=== PATIENT | male | born 1980 | race Caucasian/White ===

== ENCOUNTER 2018-10-22 07:13 | Emergency (ER) | payer SELFPAY ==
[2018-10-22 07:26] VITALS: BP 151/91; PULSE 70; RESP 16; TEMP 37; O2SAT 98
[2018-10-22 07:33] VITALS: RESP 16
--- NOTE | 2018-10-22 08:04 | ED.GENADUL_ITS ---
Discharge Plan Disposition Patient Disposition: HOME Condition: Stable Discharge Details Chief Complaint: GenMedical Clinical Impression: Pain in throat Primary Care Provider: Reid Sánchez ED Provider: Vin Richetr Home Meds and New Rx's Prescriptions: Continued Prilosec OTC 20 mg Tablet,Delayed Release (Dr/Ec) 20 mg PO DAILY RF: 0 Cayenne Pepper 1 tab PO DAILY RF: 0 Discharge Instructions Instructions: Neck Pain (ED) Additional Instructions: follow up with your primary care provider within 1-2 weeks if symptoms continue if you have difficulty swallowing liquids, difficulty breathing, vision changes, chest pain or if you feel more ill return to the emergency department Medical Decision Making 38 yo male who denies chronic medical problems comes in with pain in mid throat pain since . Denies fevers, chills, chest pain, sob. Denies pain with exertion, no radiation of pain and ecg unremarkable and no indications that this is acs, do not feel further workup indicated. Has no bruits and CN II-XII are intact and so doubt dissection. he does have some erythema of psoterior pharynx so will check for strep. 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 strep test negative, remains stable. Discussed that if not better in 1-2 weeks to see pcp and return precatuions given Differential Diagnosis pharyngitis, esophagitis ECG Data Attestation: I personally reviewed and interpreted this ECG (s) as follows: Prior ECG tracings: not available for review Interpretation: sinus rhythm, rate of 70, pr 164 HPI General Mode of arrival: ambulatory . Date/Time Provider Initiated Documentation: 10/22/18 07:23 . Limitations to Documentation: no limitations . Information obtained by: patient . History of Present Illness 38 year old M presents to the emergency department with the chief complaint of sore throat, described as moderate, and it has been constant. No relieving factors improve symptom(s), No exacerbating factors reported . Patient did receive the following treatments prior to arrival, none Related Data Home Medications Medication Instructions Recorded Confirmed Cay[place] Pepper 1 tab PO DAILY 10/22/18 Prilosec OTC 20 mg PO DAILY 10/22/18 10/22/18 Allergies Allergy/AdvReac Type Severity Reaction Status Date / Time bee venom protein (honey bee) Allergy Anaphylaxsi Unverified 10/22/18 07:30 s General Stated Complaint: GenMedical LILA: 3 Review of Systems Review of Systems All systems reviewed & are unremarkable except as noted in HPI and below Constitutional Denies chills, Denies fever(s) and Denies weakness Cardiovascular Denies chest pain and Denies dyspnea Respiratory Denies cough and Denies dyspnea Gastrointestinal Denies abdominal pain, Denies nausea and Denies vomiting Musculoskeletal Denies joint swelling Neurologic Denies weakness PFSH Social History Smoking/Tobacco Use Status: Current every day Tobacco Type: cigarettes Alcohol Intake: current Alcohol Intake frequency: a few times a month Alcohol type: beer Drug use: Occasionally Substance use type: marijuana Do you feel safe at home: Yes Do you feel safe in your relationship?: Yes Exam Const General: no acute distress Orientation: alert HENMT Head: normal to inspection Ears: external ears normal General nose exam: external nose normal Mouth: moist mucous membranes Eyes General: appearance normal, both eyes and all related structures Neck Neck: normal visual inspection Resp Effort & Inspection: normal respiratory effort and able to speak in complete sentences Cardio Rate: regular rate Skin General skin exam: no rashes or lesions noted Neuro General: alert and oriented x3 Extrem General: normal to inspection Psych Mental Status: mental status grossly normal Course Vital Signs Temperature 37 C 10/22/18 07:26 Pulse 70 10/22/18 07:26 Respiratory Rate 16 10/22/18 07:26 Blood Pressure 151/91 H 10/22/18 07:26 Pulse Oximetry 98 10/22/18 07:26 Temperature 37 C 10/22/18 07:26 Temperature Source Temporal Artery Scan 10/22/18 07:26 Pulse 70 10/22/18 07:26 Respiratory Rate 16 10/22/18 07:33 Respiratory Effort Non-Labored 10/22/18 07:33 Respiratory Depth Normal 10/22/18 07:33 Respiratory Pattern Normal 10/22/18 07:33 Blood Pressure 151/91 H 10/22/18 07:26 Blood Pressure Position Supine 10/22/18 07:26 Pulse Oximetry 98 10/22/18 07:26 Oxygen Delivery Method Room Air 10/22/18 07:26 Oxygen Flow Rate 0 10/22/18 07:26 Pain Level 4 10/22/18 07:26
[2018-10-22 08:41] VITALS: BP 130/74; PULSE 72; RESP 16; O2SAT 98
[2018-10-22 08:42] VITALS: BP 130/74; PULSE 72; RESP 16; O2SAT 98
--- NOTE | 2018-10-22 09:51 | NUR.NOTE ---
Nursing Note: Faxed referral to [facility] to re-establish care at their facility. Sarah Carter.
== END 2018-10-22 08:45 | disposition home or self-care (01) ==
LOC: ER 08:14
PROVIDERS: Emergency Provider Emergency Medicine; PCP Internal Medicine
DX: J02.9 Acute pharyngitis, unspecified (principal); F17.210 Nicotine dependence, cigarettes, uncomplicated
CPT/HCPCS: 87880; 93005; 99283; 87081; 93010

== ENCOUNTER 2020-11-09 13:39 | Outpatient (CLI) | payer OTHER, SELFPAY ==
--- NOTE | 2020-11-09 13:30 | DI.RAD_ITS ---
Exam(s) XR THUMB RT EXAM: XR THUMB RT CLINICAL HISTORY: R thumb injury. TECHNIQUE: 2D digital imaging was performed of the right finger. Three views were obtained. PA/AP, oblique, and lateral views were obtained. COMPARISON: No exams were available for comparison FINDINGS: BONES: No acute fracture is present. No bony destructive lesion is seen. JOINTS: No dislocation present. SOFT TISSUE: Normal. IMPRESSION: No evidence of acute fracture, dislocation, or subluxation. DATA REPOSITORY: RADIATION DOSE DELIVERED:
== END 2020-11-09 13:40 | disposition home or self-care (01) ==
LOC: DIORS 13:40
PROVIDERS: PCP Internal Medicine; Referring Provider Internal Medicine; Visit Provider Physician Assistant
DX: S69.81XA Other specified injuries of right wrist, hand and finger(s), initial encounter (principal); S63.641A Sprain of metacarpophalangeal joint of right thumb, initial encounter
CPT/HCPCS: 73140

== ENCOUNTER 2023-04-24 18:51 | Outpatient (REF) | payer SELFPAY | END 2023-04-24 18:52 | disposition home or self-care (01) | LOC: LBN 18:51 | PROVIDERS: PCP Internal Medicine; Visit Provider Nurse Practitioner Family | DX: J02.9 Acute pharyngitis, unspecified (principal) | CPT/HCPCS: 87070 ==

== ENCOUNTER 2023-09-26 18:59 | Emergency (ER) | payer OTHER, SELFPAY ==
[2023-09-26 19:06] VITALS: BP 177/117; PULSE 71; RESP 14; TEMP 36.8; O2SAT 99
--- NOTE | 2023-09-26 19:25 | ED.GENADUL_ITS ---
Discharge Plan Disposition Patient Disposition: Home Condition: Stable Discharge Details Clinical Impression: Laceration of left lower leg Primary Care Provider: Reid Sánchez ED Provider: Manny Hwang Home Meds and New Rx's Prescriptions: New cephalexin 500 mg capsule 500 mg PO QID 4 Days Qty: 16 0RF No Action esomeprazole magnesium [Nexium] 20 mg capsule,delayed release(DR/EC) 20 mg PO DAILY Discharge Instructions Instructions: Taking care of cuts, scrapes, and puncture wounds, Cephalexin, Laceration Repair With Stitches ED Additional Instructions: You were seen in the emergency department for your utility knife laceration to your left jha. Your tendons appear intact in all ranges of motion distal to the injury and there is no gross contamination, I thoroughly irrigated the wound, you are updated tetanus at the walk-in clinic prior to her arrival here, I performed a loose approximation as there is an element of puncture to this wound, please monitor this carefully, your stitches will need to be removed by returning to the ER in 7 to 10 days. Please monitor for signs of infection like redness, purulent drainage, red streaking up the leg, fever, severe increase in pain and return to the ER for any of the symptoms. Keep the wound clean and dry, apply bacitracin or Neosporin to the wound and keep covered with a bandage for the first 36 to 72 hours, after that keep the wound clean and dry. Please use therapeutic dosing of Tylenol (acetamenophen) & Advil (ibuprofen) in an alternating fashion as follows: Take 1000mg of Tylenol every 6 hours without missing doses- that is 4 times per day. [place]son in between the Tylenol dosings, take 400-600mg of Advil also on a 6 hour schedule, that is also 4 times per day. The daily maximum dosing of Tylenol is 4000mg, and the daily maximum dosing of Advil is 2400mg. This is safe to do for weeks. Please note that some common cold medications & prescription pain medications may contain acetamenophen and you need to read OTC drug labels and factor that in to maximum daily dosings. Do not submerge the wound or go swimming. Showering is fine. Take the prescribed prophylactic antibiotics as directed. Referrals: Reid Sánchez [Primary Care Provider] - Discharge Data Discharge Date/Time-TO BE ENTERED AT DEPARTURE: 09/26/23 20:42 HPI General Date/Time Provider Initiated Documentation: 09/26/23 19:05 . HPI Narrative: 43 year-old male presents to ED today by POV/ambulating with a chief complaint of laceration with a sheetrock knife to anterior L jha with onset at work this afternoon- he presented to Urgent Care in [facility], they updated his Tdap- irrigated the wound, and he was reporting some referred pain to the L foot- they refused simple closure and sent to ED for evaluation due to his referred foot pain. Quality described as stinging, no radiation to active bleeding, numbness, inability to move his L leg and foot. Severity is described as mild. Palliating factors include nothing specific. Provoking factors include nothing specific. Patient not anticoagulated. Related Data Home Medications ?Medication ?Instructions ?Recorded ?Confirmed esomeprazole magnesium 20 mg 20 mg PO DAILY 07/23/23 09/26/23 capsule,delayed release (Nexium) cephalexin 500 mg capsule 500 mg PO QID 4 days #16 caps 09/26/23 Previous Rx's ?Medication ?Instructions ?Recorded cephalexin 500 mg capsule 500 mg PO QID 4 days #16 caps 09/26/23 Allergies Allergy/AdvReac Type Severity Reaction Status Date / Time bee venom protein (honey bee) Allergy Anaphylaxsi Verified 09/26/23 19:05 s General Stated Complaint: Laceration LILA: 4 Review of Systems All systems reviewed & are unremarkable except as noted in HPI and below Exam Narrative Exam Narrative: GENERAL APPEARANCE: Well-nourished, non-toxic, awake and alert, atraumatic, no acute distress. SKIN: Warm, pink, dry, 1.75cm anterior L-shaped L LE jha laceration, no active bleeding, no tendons visualized, not grossly contaminated, full ROM distally, plantar/dorsiflexion 5/5, L dorsalis pedis pulse 2+, sensation intact distally HEAD: Normocephalic, atraumatic, normal hair distribution for gender/age. EYES: Normal conjunctiva, no exudates on lids/lashes. ENT: Nares patent, no circumoral cyanosis, no facial swelling NECK: Supple, trachea midline, painless cervical ROM. LUNGS/CHEST: Non-labored respirations, normal A/P diameter, symmetrical expansion, no chest wall deformity HEART (CV/PV): Regular rate, no peripheral edema, no JVD. ABDOMEN: Soft, non-distended, no guarding. MSK: Normal ROM, no swelling/deformity to bilateral UEs or LEs, moving all extremities without weakness, no cyanosis, spine midline without tenderness, normal curvature. NEURO: Mental Status AAOx4 - alert to person, place, time, events No facial droop, no forehead involvement. Motor: No focal weakness - strength 5/5 in bilateral UEs and LEs, proximal and distal, symmetric. Sensory: sensation intact to light touch globally. Gait normal: patient ambulated without ataxia into ED room. PSYCH: euthymic, cooperative, pleasant, appropriate speech Course Vital Signs Vital signs: Vital Signs Temperature 36.8 C 09/26/23 19:06 Pulse 71 09/26/23 19:06 Respiratory Rate 14 09/26/23 19:06 Blood Pressure 177/117 H 09/26/23 19:06 Pulse Oximetry 99 09/26/23 19:06 Temperature 36.8 C 09/26/23 19:06 Temperature Source Temporal Artery Scan 09/26/23 19:06 Pulse 71 09/26/23 19:06 Respiratory Rate 14 09/26/23 19:06 Respiratory Effort Normal 09/26/23 19:10 Blood Pressure 177/117 H 09/26/23 19:06 Blood Pressure Position Sitting 09/26/23 19:06 Pulse Oximetry 99 09/26/23 19:06 Oxygen Delivery Method Room Air 09/26/23 19:06 Oxygen Flow Rate 0 09/26/23 19:06 Pain Level 1 09/26/23 19:10 Procedures Laceration Laceration 1: Site: lower extremity Side (If applicable): left Size (cm): 1.75 Description: stellate Depth: simple, single layer Local anesthetic: Lidocaine 2% Amount of anesthesia used (mL): 3 Pre-repair: wound explored, irrigated extensively and deep structures intact Skin layer closed with: nylon Size (cm): 4-0 Number of sutures: 3 Medical Decision Making This dictation utilizes [id number] dictation software and may contain unedited grammatical errors. 43 year-old male presents to ED today by POV/ambulating with a chief complaint of laceration with a sheetrock knife to anterior L jha with onset at work this afternoon- he presented to Urgent Care in town, they updated his Tdap- irrigated the wound, and he was reporting some referred pain to the L foot- they refused simple closure and sent to ED for evaluation due to his referred foot pain. Quality described as stinging, no radiation to active bleeding, numbness, inability to move his L leg and foot. Severity is described as mild. Palliating factors include nothing specific. Provoking factors include nothing specific. Patients' medical history: noncontributory. Family and social history: works as a [employer]. Pertinent exam findings / vital signs include 1.75cm anterior L-shaped L LE jha laceration, no active bleeding, no tendons visualized, not grossly contaminated, full ROM distally, plantar/dorsiflexion 5/5, L dorsalis pedis pulse 2+, sensat ion intact distally. Differential / pathologies of concern include laceration, not tendon rupture. Diagnostic studies of: -none. Interventions of: -laceration repair w/ #3 sutures of 4-0 prolene ED Course/Assessment/Plan: 43-year-old male presents with a left anterior jha laceration that is 1.5 cm L- shaped, he was seen at urgent care they did Tdap him as well as start laceration repair but wanted him evaluated due to possibility of tendon rupture despite full range of motion and sensation distally, I did repair the wound after anesthetizing it with 3 mL of 2% lidocaine without epinephrine with 3 sutures of 4-0 Prolene, I stressed return criteria for suture removal in 7 to 10 days, earlier return for signs of infection like redness, purulent drainage, red streaking, increasing swelling, fever. Counseled on Tylenol and ibuprofen for pain as needed and daily dressing changes and avoiding swimming with this. Findings not consistent with gross contamination, tendon rupture. Disposition of Laceration of Left Lower Leg. Patient verbalized understanding of the plan and return to ED criteria and engaged in shared decision making. Medical Records Medical records reviewed: Yes I reviewed the patient's medical records. Quality:SDOH Health Related Social Needs: No Data to Display PFSH All Active Problems (Updated 09/26/23 @ 20:30 by FRENCH Prado) Laceration of left lower leg (Acute) Sprain of ulnar collateral ligament of metacarpophalangeal (MCP) joint of right thumb (Acute) Social History Smoking/Tobacco Use Status: Current every day Tobacco Type: cigarettes Smoking risk assessment performed?: Yes Alcohol Intake: current Alcohol Intake frequency: a few times a month Alcohol type: beer Drug use: Occasionally Substance use type: marijuana Current gender identity: male Do you feel safe at home: Yes Do you feel safe in your relationship?: Yes
[2023-09-26] MEDS: Cephalexin 500 MG CAP, 2 CAPS/BTL PO (20:38)
[2023-09-26 20:43] VITALS: BP 136/86; PULSE 60; O2SAT 98
== END 2023-09-26 20:42 | disposition home or self-care (01) ==
PROVIDERS: Emergency Provider Physician Assistant; PCP Internal Medicine
DX: S81.812A Laceration without foreign body, left lower leg, initial encounter (principal); M79.672 Pain in left foot; Y99.0 Civilian activity done for income or pay; W26.8XXA Contact with other sharp object(s), not elsewhere classified, initial encounter
CPT/HCPCS: 12001